=== PATIENT | female | born 1960 | race Caucasian/White ===

== ENCOUNTER → 2024-05-10 16:35 | Outpatient (CLI) | payer MEDICARE, OTHER, SELFPAY ==
--- NOTE | 2024-05-10 | DI.MRI.S_ITS ---
PROCEDURE: MR LUMBAR SPINE WO CON INDICATIONS: radiculopathy lspine TECHNIQUE: Noncontrast sagittal T1 spin echo and T2 fast echo, sagittal STIR, and T2 fast spin echo through the lumbar spine. In cases with scoliosis, additional coronal T2 fast spin echo may be performed. COMPARISON: None. FINDINGS: Alignment and Curvature: Moderate convex left lumbar scoliosis Bone Marrow: Marrow is of normal overall signal. No acute vertebral body compression fractures. Spinal Cord: Conus medullaris terminates at the L1 level. Visualized cord demonstrates normal signal and size. Paraspinous Soft Tissues: No paravertebral masses. T12-L1: No central or foraminal stenosis L1-L2: Disc bulge. Mild central stenosis. No foraminal stenosis L2-L3: Disc bulge and hypertrophic facet joints combines with dorsal epidural fat result in moderate central stenosis. Mild bilateral foraminal stenosis. L3-L4: Disc bulge and arthropathy. Mild central stenosis. Mild bilateral foraminal stenosis L4-L5: Disc bulge and arthropathy. No central stenosis. Moderate left and no right foraminal stenosis L5-S1: Disc bulge and arthropathy. No central stenosis. No foraminal stenosis. IMPRESSION: Multilevel degenerative disc disease and arthropathy results in varying degrees of central and foraminal stenosis including moderate central stenosis at L2-3 Thoracolumbar levoscoliosis Approved by: Nash Mercado M.D. on 05/11/2024 at 14:02
== END ==
PROVIDERS: Referring Provider Family Medicine; Visit Provider Family Medicine
DX: M51.16 Intervertebral disc disorders with radiculopathy, lumbar region (principal); M47.26 Other spondylosis with radiculopathy, lumbar region; M48.061 Spinal stenosis, lumbar region without neurogenic claudication; M51.17 Intervertebral disc disorders with radiculopathy, lumbosacral region; M47.27 Other spondylosis with radiculopathy, lumbosacral region; M54.50 Low back pain, unspecified; M41.9 Scoliosis, unspecified
CPT/HCPCS: 72148

== ENCOUNTER 2024-10-17 08:29 | Day surgery (SDC) | payer MEDICARE, OTHER, SELFPAY ==
[2024-10-05 12:57] VITALS: BMI 34.5
[2024-10-17] VITALS (13 sets, daily range): BP systolic 95–128; BP diastolic 43–86; PULSE 69–83; RESP 12–19; TEMP 36.1–36.6; O2SAT 93–100; BMI 34.7
--- NOTE | 2024-10-17 06:00 | DI.RAD.S_ITS ---
PROCEDURE: XR HIP W PEL IF DONE LT 2V INDICATIONS: anterior total left hip TECHNIQUE: AP pelvis and lateral view of the hip acquired. COMPARISON: [facility], BRIJESH, XR PELVIS 1-2V, 10/17/2024, 11:55. FINDINGS: Bones: Patient is status post right hip arthroplasty, with hardware components in expected positions. The hip joint appears congruent. The visualized bony structures appear intact. Soft tissues: Overlying postoperative changes are noted. No suspicious soft tissue densities. IMPRESSION: Expected post-operative appearance of a hip arthroplasty. Dictated by: Nela Rodríguez M.D. on 10/17/2024 at 13:40 Approved by: Nela Rodríguez M.D. on 10/17/2024 at 13:40
[2024-10-17] MEDS: LACTATED RINGERS 1,000 ML 42 ML IV (09:02)
[2024-10-17] MEDS: ACETAMINOPHEN 325 MG TABLET 975 MG PO (09:02)
[2024-10-17] MEDS: CELECOXIB 200 MG CAPSULE PO (09:02)
[2024-10-17] MEDS: VANCOMYCIN 1,000 MG in SODIUM CHLORIDE 0.9% 250 ML 250 MG IV (09:52)
--- NOTE | 2024-10-17 10:02 | PM.PREOP ---
Pre-operative Note Interval Note History & Physical reviewed/Exam performed by Physician: Yes Changes to H&P: No
--- NOTE | 2024-10-17 10:02 | PM.OP.1 ---
Operative Date/Time/Diagnoses Date of procedure: 10/17/24 Time of procedure: 11:00 Pre-op diagnosis: left hip OA Post-op diagnosis: same Procedure & Clinicians Procedure: Left total hip arthroplasty posterior approach Same procedure as scheduled: Yes Indications: The patient has had progressively worsening left hip pain with radiographic changes consistent with arthritis. Non-operative management has failed and the patient has requested total hip replacement. The risks, benefits and alternatives to surgery were discussed with the patient prior to proceeding. Risks discussed included, but were not limited to, failure to relieve pain, leg length discrepancy, dislocation, stiffness, infection, nerve damage, deep venous thrombosis, pulmonary embolism, stroke, coma, heart attack, permanent paralysis and , as well as the potential need for eventual revision of the prosthetic. Surgeon: Anabell Fisher Manufacturing Baker: Judy Fraser Anesthesia Type: General and Spinal Operative Notes Findings: Severe left hip OA, adequate stability, adequate bone Closure Type: primary Specimen(s): none sent Prosthetic devices, grafts, tissues, transplants, or devices: Fisher and nephew size 48 R3 cup, neutral poly liner,one 6.5 mm screw, size 0 polar stem standard offset with collar, 32 x +0 femoral head Estimated Blood Loss (mL): 250 Blood products transfused: none Procedure in detail: The patient was seen in the pre-operative area, where the patient identified the left hip as the operative site and this was marked with my initials. The patient received pre-operative antibiotics and was taken to the operating room and placed on the operative table in the right lateral decubitus position after satisfactory anesthesia. A night time nanny out was performed. The left leg was prepared from the ankle to the iliac crest with ChloroPrep in the usual fashion and draped through sterile drapes. A PA was used during the procedure and was essential for intraoperative retraction and safe implantation of the components. The hip was approached through an approximately 20 cm incision centered over the greater trochanter and curving gently posteriorly as it went proximally. This was carried sharply to the fascia nasima, which was divided and retracted with a self retaining retractor. The trochanteric bursa was excised with care being taken to avoid the sciatic nerve, which was identified and protected throughout the case. The short external rotators were incised and the capsulomuscular flap was raised and tagged for later repair. The hip was dislocated, and a femoral neck osteotomy performed approximately 15 mm above the lesser trochanter. Retractors were placed around the femur. The canal was opened with a box cutting osteotome, followed by a T handled reamer and a lateralizing reamer. The chili pepper broach was then used, followed by sequential broaching until there was good stability of the broach in the femur. Retractors were placed to expose the acetabulum. The labrum and central soft tissues were removed. Reaming was performed initially going up in 2 mm increments, then 1 mm increments until good bite was obtained with an odd sized reamer. The cup 1 mm larger than the last reamer was then inserted using the appropriate anteversion guides. It was further stabilized with a single screw. A trial neutral liner was placed. The broach was placed in the canal. A trial head and neck were then placed and the hip relocated and checked for leg length and stability. An intraoperative film confirmed the component position and no evidence of fracture. The patient was stable in the position of sleep, of squatting, and could be put through a range of motion with 45 degrees internal rotation without dislocation. At 90 degrees flexion, internal rotation to 80? was possible before dislocation. This was felt to be satisfactory and the appropriate components were opened, and the trials were removed. The acetabular liner was impacted into position. The final stem was then impacted into the prepared femoral canal. A brief Betadine soak was performed while trialing with head options. The hip was meticulously irrigated with normal saline. Finally the femoral head was impacted onto the stem. The acetabulum was cleared of all material and the hip relocated one final time. The capsulomuscular flap was then repaired to the greater trochanter though an awl hole using the tag sutures. The short external rotators were repaired with a nonabsorbable suture. The fascia nasima was closed with Vicryl. The subcutaneous layer was closed with barbed sutures and surgical glue. An Aquacel Ag dressing was applied and the patient was taken to recovery having tolerated the procedure well. Complications: none Post-operative Condition: stable Disposition: Acute Care Plan for aftercare: The patient will be maintained on a standard total hip replacement protocol with weight bearing as tolerated and posterior hip precautions. The patient will receive Aspirin and sequential compression devices for DVT prophylaxis. The patient will be discharged home when safe for the home environment.
[2024-10-17] MEDS: CEFAZOLIN 2 GM/100 ML PREMIX 100 ML IV ×2 (11:15→18:47)
[2024-10-17] MEDS: TRANEXAMIC ACID 1,000 MG VIAL 2000 MG INJ ×2 (11:19→12:26)
--- NOTE | 2024-10-17 12:23 | DI.RAD.S_ITS ---
PROCEDURE: XR PELVIS 1-2V INDICATIONS: LEFT HIP ARTHROPLASTY TECHNIQUE: Intra-operative view of the pelvis and hip acquired. COMPARISON: [facility], CR, XR HIP W PEL IF DONE LT 2V, 10/17/2024, 13:06. FINDINGS: Bones: Intraoperative devices prior to placement of arthroplasty prostheses are in expected positions. No fractures or suspicious bony lesions. Soft tissues: Overlying surgical retractors are present, along with other intraoperative changes. IMPRESSION: Intraoperative right hip arthroplasty. Dictated by: Nela Rodríguez M.D. on 10/17/2024 at 13:29 Approved by: Nela Rodríguez M.D. on 10/17/2024 at 13:30
[2024-10-17] MEDS: BUPIVACAINE 0.25% (PF) 60 ML, EPINEPHrine 0.3 MG INJ (12:27)
[2024-10-17] MEDS: BUPIVACAINE LIPOSOME 266 MG/20 ML VIAL INJ (12:28)
[2024-10-17] MEDS: SODIUM CHLORIDE 0.9% 1,000 ML 100 ML IV (13:30)
[2024-10-17] MEDS: IBUPROFEN 400 MG TABLET PO (14:56)
[2024-10-17] MEDS: ACETAMINOPHEN 325 MG TABLET 650 MG PO (14:59)
[2024-10-17] MEDS: ASPIRIN EC 81 MG TABLET PO (21:18)
[2024-10-17] MEDS: DOCUSATE 100 MG CAPSULE PO (21:18)
[2024-10-18] MEDS: OXYCODONE IR 5 MG TABLET PO ×3 (03:15→12:14)
[2024-10-18] MEDS: CEFAZOLIN 2 GM/100 ML PREMIX 100 ML IV (03:16)
[2024-10-18 03:44] VITALS: BP 104/59; PULSE 83; RESP 18; TEMP 36.6; O2SAT 97
[2024-10-18 07:02] LABS: Hematocrit 30.6 % (36-46); Hemoglobin 10.4 g/dL (12.0-16.0)
[2024-10-18] MEDS: CHOLECALCIFEROL (VITAMIN D3) 5,000 UNIT TABLET 5000 UNIT PO (08:10)
[2024-10-18] MEDS: VENLAFAXINE ER 75 MG CAP PO (08:10)
[2024-10-18] MEDS: DOCUSATE 100 MG CAPSULE PO (08:10)
[2024-10-18] MEDS: ASPIRIN EC 81 MG TABLET PO (08:11)
[2024-10-18 08:12] VITALS: BP 101/45; PULSE 75; RESP 16; TEMP 36.1; O2SAT 100
--- NOTE | 2024-10-18 09:12 | PM.DS.1 ---
History of Present Illness History of Present Illness Date Patient Seen: 10/18/24 Time Patient Seen: 08:20 Chief complaint: OPB Narrative: The patient has had progressively worsening left hip pain with radiographic changes consistent with arthritis. Non-operative management has failed and the patient has requested total hip replacement. The risks, benefits and alternatives to surgery were discussed with the patient prior to proceeding. Risks discussed included, but were not limited to, failure to relieve pain, leg length discrepancy, dislocation, stiffness, infection, nerve damage, deep venous thrombosis, pulmonary embolism, stroke, coma, heart attack, permanent paralysis and , as well as the potential need for eventual revision of the prosthetic. Discharge Providers Provider Discharge Date: 10/18/24 Primary care physician: Glory Cox MD Consults: 10/16/24 09:54 Consult to Anesthesiology Routine Comment: Consulting Provider: Anesthesiologist Reason for consultation: Regional block for post operative pain control 10/17/24 13:57 Consult to Discharge Planning Routine Comment: Consult to Occupational Therapy Evaluate & Treat Comment: Physician Instructions: Evaluate and treat Consult to Physical Therapy Evaluate & Treat Comment: Physician Instructions: post op KINA protocol 10/17/24 14:06 Consult to Dietitian, Adult Routine Comment: Reason For Exam: pt intentionally lost 15 lbs in 3 months Discharge provider: Jones Addison PA-C Summary Hospital Course Discharge Diagnosis: left hip OA Hospital Course: Procedure: Left total hip arthroplasty posterior approach Same procedure as scheduled: Yes Surgeon: Anabell Fisher Respiratory Care Practitioner: Judy Fraser Anesthesia Type: General and Spinal Operative Notes Findings: Severe left hip OA, adequate stability, adequate bone Closure Type: primary Specimen(s): none sent Prosthetic devices, grafts, tissues, transplants, or devices: Fisher and nephew size 48 R3 cup, neutral poly liner,one 6.5 mm screw, size 0 polar stem standard offset with collar, 32 x +0 femoral head Estimated Blood Loss (mL): 250 Blood products transfused: none Status at Discharge Cognitive/behavioral status at discharge: oriented Functional status at discharge: uses cane/walker Overall status at discharge: patient is back to baseline Time Spent with Patient Time spent: Less than 30 minutes Exam Vital Signs (past 8 hours): - 10/18/24 03:44 10/18/24 08:12 Temperature 97.8 F 97 F L Pulse Rate 83 75 Respiratory Rate 18 16 Blood Pressure 104/59 L 101/45 L Pulse Oximetry 97 100 Oxygen Flow Rate 0 0 Oxygen Delivery Method Room Air Oxygen Flow Rate 0 Narrative Exam Narrative: Patient found sitting comfortably in the chair finishing her breakfast. Denies any shortness of breath lightheadedness dizziness. Denies any nausea vomiting fever or chills. Denies any new numbness or tingling down the lower extremities. Pain is controlled with oral medications. Lower Extremities. 5/5 strength in hip flexors, quadriceps, hamstrings, DF, PF, EHL bilaterally. Sensation to light touch intact throughout BLE. Calves soft, compressible, nontender. ?Dressing placed intraoperatively CDI. Resp Effort & Inspection: normal respiratory effort and able to speak in complete sentences Objective Labs 10/18/24 06:20 Labs: Laboratory Results - last 24 hr 10/18/24 06:20 Hgb 10.4 L Hct 30.6 L PFSH Medical History REANNA (obstructive sleep apnea) Depression DDD (degenerative disc disease) Surgical History Hx of section Hx of arthroscopy of left knee Hx of total hysterectomy (2009) History of carpal tunnel release of both wrists (~2012) Hx of elbow surgery (~2018) History of total left knee replacement (10/2023) Social History household members: children Smoking Status: Former smoker alcohol intake: current Discharge Assessment & Plan Assessment and Plan Assessment: Left total hip arthroplasty posterior approach Plan of Treatment: Discharge to home. Posterior hip precautions. Ambulate and weight bear as tolerated with assistive devices.? Aspirin 81 mg twice a day for 6 weeks for DVT prevention.? Baseline pain relief with acetaminophen 500 mg q.4 hours as needed and ibuprofen 400 mg q.4 hours PRN.? Patient has been prescribed oxycodone 5 mg q.4 hours for any breakthrough pain.? Initiate physical therapy in the next 5-10 days.? Keep dressing clean and dry. Keep on until first office visit. Dressing becomes dirty or disrupted contact clinic. Follow up in clinic in 2 weeks for wound check. Discharge Plan Discharge Plan Patient Disposition: Home Provider Discharge Comment: DC pending PT approval Discharge orders & Medications Discharge Orders: Discharge (Order); Ordered 10/18/24 Ordered By: Jones Addison Prescriptions: New aspirin 81 mg Tablet,Delayed Release (Dr/Ec) 81 mg PO BID Qty: 90 0RF Continued phentermine 30 mg capsule 30 mg PO QAM oxycodone-acetaminophen 5-325 mg tablet 1 tab PO 3XD PRN (Reason: pain) venlafaxine 75 mg tablet extended release 24hr 75 mg PO DAILY cholecalciferol (vitamin D3) [Vitamin D3] 125 mcg (5,000 unit) Tablet 5,000 unit PO DAILY Follow up/Referrals: Leilani Rodríguez PA-C [[employer]] - 10/27/24 3:30 pm (Appt:10/27 @ 3:30 with Mariah PAC @ [facility] [place] Glory Cox MD [Primary Care Provider] - Diet/Activity/Treatments Diet: Diet as Tolerated Activity: Ambulate multiple times a day. Use a cane or walker as needed. Full weight on leg Cold/Heat Therapy: Use ice multiple times a day. Skin/Wound/Dressing Care Skin care: Leave dressing on. Okay to shower Report to your healthcare provider any signs of infection, such as:: chills, fever, night sweats, unusual drainage and unusual redness Dressing: May shower. Leave dressing in place until follow up in office. No bathing or otherwise soaking incision. Call the office if the dressing becomes saturated inside. Visit Report/Discharge Packet Instructions: DI for Hip Replacement, DI for Prescription Opioid Use Stand Alone Forms: Patient Portal/API, Surgery Discharge Discharge Data Primary Care Provider: Glory Cox Attending Provider: Anabell Fisher VTE Deep Vein Thrombosis/Pulmonary Embolism Present on Admission: No
--- NOTE | 2024-10-18 09:30 | OT.IP.EVAL ---
Addendum entered and electronically signed by Vivien Enriquez OT 10/18/24 09:44: esign Original Note: Current Diagnoses Unilateral primary osteoarthritis, left hip (10/17/24) Surgery Performed Operation Date: 10/17/24 10:45 Actual Procedures p Total Hip Arthroplasty(Left) - Anabell Fisher MD Past Medical History (Last Reviewed 10/17/24 @ 08:56 by Tova Coates, RN) DDD (degenerative disc disease) Depression REANNA (obstructive sleep apnea) Surgical History (Last Reviewed 10/17/24 @ 08:56 by Tova Coates RN) History of carpal tunnel release of both wrists (~2012) History of total left knee replacement (10/2023) Hx of arthroscopy of left knee Hx of section Hx of elbow surgery (~2018) Hx of total hysterectomy (2009) Occupational Therapy Inpatient Evaluation/Re-Eval M1 PT/OT-IP Prior Functional Status Start: 10/18/24 09:31 Freq: NEEDED Status: Active Protocol: Document 10/18/24 09:31 [facility] (Rec: 10/18/24 09:42 [facility] [id number]) Medical Review Prior Functional Status Communication I Mobility and Gait Pt limited in mobility due to pain and did not use a device. Activities of Daily Living and IADL's Pt able to do with increased time. Prior Functional Level (Other details) Pt is from [place] and to be staying with her daughter here . House set-up based on her daughter's house. Social History Household Members children Living Arrangements House Number of Floors (Floors) Two Floors Number of Stairs To Enter/Railing? 3-4 steps with feliciano to enter to the garage. Pt has 8 steps with left rail to get to the living, kitchen, and bathroom area in which she will just sleep in a recliner. Home Environment Standard Height Toilet,Tub/ Shower Home Equipment Front Wheel Walker,Shower Seat without Backrest M2 OT-IP Current Condition Start: 10/18/24 09:31 Freq: Status: Active Protocol: Document 10/18/24 09:31 [facility] (Rec: 10/18/24 09:42 [facility] [id number]) Occupational Therapy Current Condition Current Condition Evaluation Date 10/18/24 Treatment Diagnosis S/P L KINA Posterior approach Diagnosis Onset Date 10/17/24 Post Operative Precautions Posterior Hip Precautions No Hip Flexion > 90 degrees,No Hip Internal Rotation,No Hip Adduction M3 OT- IP Subjective and Pain Start: 10/18/24 09:31 Freq: Status: Active Protocol: Document 10/18/24 09:31 [facility] (Rec: 10/18/24 09:42 [facility] [id number]) OT- Subjective Occupational Therapy Visit Type Type Initial Evaluation Visit Start Time 08:50 Visit Stop Time 09:30 Occupational Therapy Visit Comments Patient Comments Pt agreed to get up to use the bathroom and do oral care needs. Patient/Caregiver Goals TO go home. OT Pain Assessment Pain When Pain Assessed During Mobility Pain Present Pain Present Pain Reported Location Right Hip Intensity 5 Scale Used Numeric (0 - 10) M4 OT- IP ADL's Start: 10/18/24 09:31 Freq: Status: Active Protocol: Document 10/18/24 09:31 [facility] (Rec: 10/18/24 09:42 [facility] [id number]) OT BRB-Cqyp-Itmuath General Evaluation Self-Feeding Ability Independent OT ADL-Grooming General Evaluation Grooming Ability Standby Assistance Areas Needing Assistance Retrieving/Set-up of Grooming Items Comments OT Grooming Comments while standing OT ADL-Oral Care General Eval Oral Care Ability Independent Comments Oral Care Comments while standing OT ADL-Dressing General Eval Lower Body Dressing Ability Standby Assistance,Minimal Assistance Areas Needing Assistance Socks Comments OT Dressing Comments ABle to have pt practice use of sock aid and director of maintenance. Educated to dress the LLE first and take out last. OT ADL-Toileting General Evaluation Toileting Ability Standby Assistance Comments OT Toileting Comments Educated to stand and wipe, use of brief/pads at night if needed and to call for assist from her daughter. OT ADL-Bathing Comments OT Bathing Comments Pt states to just sponge bath for now , but would benefit from a transfer bench, HHSP, and grab bars. M5 OT- IP IADL's Start: 10/18/24 09:31 Freq: Status: Active Protocol: Document 10/18/24 09:31 [facility] (Rec: 10/18/24 09:42 [facility] [id number]) OT-Instrumental Activities of Daily Living Deficits IADL Deficits Identified Deficits Home Safety Awareness Awareness of Need for Assistance at Home Good Awareness Ability to Problem Solve Emergency Able to Problem Solve Situations Medication Management Medication Management No Deficits Identified Money Management Money Management No Deficits Identified Meal Preparation Meal Preparation Caregiver Provides Assist Occupational Therapy Co Director Occupational Therapy Co Director Caregiver Provides Assist M6 OT- IP Functional Cognition Start: 10/18/24 09:31 Freq: Status: Active Protocol: Document 10/18/24 09:31 [facility] (Rec: 10/18/24 09:42 [facility] [id number]) Cognitive Factors Limiting Selfcare Function Cognitive Ability Level of Alertness Alert Patient Orientation Name,Age,Birthday,Month,Date, Year,Day of Week,Place, Situation Attention Span Ability Capable of Focused Attention, Capable of Sustained Attention Ability to Follow Commands Able to Follow One Step Commands Safety Awareness No Deficits Noted Cognitive Comments Cognitive Assessment Comments Pt able to recall and needing occasional reminders to incorporate her hip precautions during toilet transfer needs. OT- Vision and Hearing OT- Hearing Assessment OT- Hearing Assessment WFL OT- Vision Assessment Visual Acuity Glasses For Reading Visual Attentiveness WFL Occular Pursuits WFL M7 OT- IP Mobility and Balance Start: 10/18/24 09:31 Freq: Status: Active Protocol: Document 10/18/24 09:31 [facility] (Rec: 10/18/24 09:42 [facility] [id number]) OT-Transfer Assessment Sit to and From Stand Sit to and from Stand Contact Guard Assistance Transfers Transfer Ability Standby Assistance Technique Transfer Destination Chair Transfer Technique Stand Step Pivot Devices Transfer Assistive Devices Gait Belt,Front Wheeled Walker Comments Mobility Comments CGA to stand with initial vc to slide her LLE forwards prior to standing and sitting down. Once on her feet pt is SBA with FWW. OT- Balance Assessment Sitting Balance and Reactions Static Sitting Balance Ability Good Dynamic Sitting Balance Ability Good Standing Balance and Reactions Static Standing Balance Ability Good Dynamic Standing Balance Ability Fair M8 OT- IP Objective Assessments Start: 10/18/24 09:31 Freq: Status: Active Protocol: Document 10/18/24 09:31 [facility] (Rec: 10/18/24 09:42 [facility] [id number]) OT Gross Range of Motion Upper Extremity Range of Motion ROM Impairments WFL for needs. OT Strength Upper Extremity Strength Assessment Within Functional Limits M9 OT- IP Assessment and Plan Start: 10/18/24 09:31 Freq: Status: Active Protocol: Document 10/18/24 09:31 [facility] (Rec: 10/18/24 09:42 [facility] [id number]) OT Summary Assessment and Plan Potential Rehabilitation Potential Excellent Analytic Complexity at Evaluation Low Summary OT Impairments Pain,Balance,Functional Mobility,Dressing,Bathing, Shower Transfers Progress Towards Goals Progressing Toward Goals Assessment Summary Pt low complexity and main barriers are pain, steps, and will bee needign assist for ADL and IADL needs. Pt will also benefit from getting BSC, transfer bench, LB dressing equipment, HHSP, and grab bars . Pt go to her daughter's house to assist and attend outpt PT. Goals Grooming Goal Independent Dressing Goal Independent,Rn Lpn Cna,Sock Aid Toileting Goal Independent Bathing Goal Minimal Assistance Toilet Transfer Goal Independent Shower Transfer Goal Contact Guard Assistance Days to Meet Goals 5 Frequency of Treatment Other frequency 5x/week Treatment Plan OT Treatment Plan ADL Training,Functional Mobility,Patient/Family Education,Discharge Planning Discharge Recommendations OT Discharge Recommendations Home with Assistance, Outpatient PT Home Equipment Needs BSC, transfer bench, grab bars , HHSP, LB dressing equipment Transportation Needs at Discharge Private Vehicle
--- NOTE | 2024-10-18 09:38 | DIET.CONS ---
Dietary Consultation Note Admission Date: Assessment: 64 y F admitted for left total hip arthroplasty. RD consulted for pt intentionally lost 15 lb in 3 months. Pt discharging, EMR reviewed. Per chart weights, intentional loss of 15 lb in 3 months is 7% loss of weight in 3 months and is non-severe. 100% recorded PO intakes, DFM reviewed. No nutritional interventions needed. Ht: 160.02 cm Wt: 88.904 kg BMI: 34.7 UBW: 88.451 kg on 10/05/24 Last BM: () MNA: 10 Nick Score: 23 Diet: 10/17/24 Lunch General (Regular) Diet Diet Modifications: Nutrition Percent Meal Consumed 100% 10/18/24 09:13 Percent Meal Consumed 100% 10/17/24 18:15 Labs: Hgb 10.4 g/dL (12.0-16.0) L 10/18/24 06:20 Hct 30.6 % (36-46) L 10/18/24 06:20 Electronically Signed by: Eileen Roa 10/18/24 09:38 Clinical Dietitian [address] [id number]
--- NOTE | 2024-10-18 10:00 | PT.IIE ---
Current Diagnoses Unilateral primary osteoarthritis, left hip (10/17/24) Surgery Performed Operation Date: 10/17/24 10:45 Actual Procedures p Total Hip Arthroplasty(Left) - Anabell Fisher MD Surgical History (Last Reviewed 10/17/24 @ 08:56 by Tova Coates, RN) History of carpal tunnel release of both wrists (~2012) History of total left knee replacement (10/2023) Hx of arthroscopy of left knee Hx of section Hx of elbow surgery (~2018) Hx of total hysterectomy (2009) Medical History (Last Reviewed 10/17/24 @ 08:56 by Tova Coates, VICKI) DDD (degenerative disc disease) Depression REANNA (obstructive sleep apnea) Physical Therapy Inpatient Evaluation/Re-Eval M1 PT/OT-IP Prior Functional Status Start: 10/18/24 12:05 Freq: NEEDED Status: Active Protocol: Document 10/18/24 10:00 AB (Rec: 10/18/24 12:28 AB [id number]) Medical Review Prior Functional Status Medical History Reviewed Yes Communication able to make needs known Mobility and Gait pt stated that she was independent with all mobilities and ambulation without AD but occasionally uses a 4WW Activities of Daily Living and IADL's Pt able to do with increased time (per OT note) Social History Household Members none Living Arrangements House Number of Floors (Floors) Two Floors Number of Stairs To Enter/Railing? 4 steps without rails to enter the house 8 steps L rail to living room area (pt plans to stay ) Home Environment Standard Height Toilet,Tub/ Shower,Tub/Shower Doors Home Equipment Front Wheel Walker,Straight Cane,Crutches,Raised Toilet Seat w/Armrests,Shower Seat without Backrest Additional Social History Comment pt lives in [place] but plans to go to her daughter's house upon d/c. Daughter works from home and will be able to assist pt if needed. Info provided above is regarding pt's daughter's home set up pt plans to sleep on her recliner for a few days M2 PT-IP Current Condition Start: 10/18/24 12:05 Freq: NEEDED Status: Active Protocol: Document 10/18/24 10:00 AB (Rec: 10/18/24 12:28 AB [id number]) Physical Therapy Current Condition Current Condition Evaluation Date 10/18/24 Treatment Diagnosis s/p L KINA posterior; difficulty in walking Onset Date 10/17/24 M3 PT-IP Subjective Start: 10/18/24 12:05 Freq: NEEDED Status: Active Protocol: Document 10/18/24 10:00 AB (Rec: 10/18/24 12:28 [id number]) Subjective Physical Therapy Visit Type Type Initial Evaluation Visit Start Time 10:00 Visit Stop Time 10:50 Number of RESIDENT SERVICES COORDINATOR Visits 0 Physical Therapy Visit Comments Patient Comments agreeable to do PT Therapy Pain Assessment Pain When Pain Assessed At Rest Pain Present Pain Present Pain Reported Location Right Hip Intensity 6 Scale Used increases with mobility Pain Management Techniques Apply Cold,Elevation, Modification of Treatment,Re- positioning,Timing of Activity with Medications M4 PT-IP Mobility and Gait Start: 10/18/24 12:05 Freq: NEEDED Status: Active Protocol: Document 10/18/24 10:00 AB (Rec: 10/18/24 12:28 [id number]) PT-Bed Mobility Assessment Supine to Sit Supine to Sit Moderate Assistance Sit to Supine Sit to Supine Moderate Assistance,1 Person Assistance PT-Transfer Assessment Sit to and From Stand Sit to and from Stand Contact Guard Assistance,1 Person Assistance,Use of Upper Extremities Equipment Transfer Assistive Device Gait Belt,Front Wheeled Walker Orthotic/Prosthetic Devices or Brace: No Transfers Transfer Destination Bed Transfer Technique ambulated Transfer Ability Level of Assist Contact Guard Assistance,1 Person Assistance,Use of Upper Extremities Comments Mobility Comments pt sitting on the chair and agreeable to do PT. obtained PLOF and home setup. reviewed posterior hip precautions with pt. pt able to recall afterwards. pt completed sit to stand from the chair CGA and cued for techniques and precautions. pt ambulated in room ~ 30 ft and sat on EOB. pt completed sit to supine mod A for LLE elevation to bed. pt completed supine to sit mod A and cues. educated pt on how to do bed mobility using SPC as leg stallion manager and pt stated that daughter will also be able to assist. pt also plans to sleep on her recliner for first few days. pt completed sit to stand from EOB CGA and step transfer to chair SBA. pt rested. agreed to do stairs. sit to stand from chair CGA and ambulated towards the stairs ~ 40 ft using FWW SBA to CGA. c/o increase hip pain. stair climbing training conducted. pt stated that she prefers using her crutches. educated pt on how to do stairs using 2 crutches and also 1 crutch + L rail. pt completed up/down steps using B crutches CGA. pt declined doing more stairs and stated that she got it. pt also stated that she will be able to tell her daughter what to do and how to assist her. assisted pt back to her room. pt requested to go back to bed . completed sit to stand from w/c SBA and ambulated to EOB using fWW SBA to CGA. completed sit to supine mod A for LE elevation to bed. positioned pt on the bed. call light and table placed within reach. Gait Assessment Gait Gait Assistance Required: Standby Assistance,Contact Guard Assist Distance (Feet) 40 Able to Maintain Weight Bearing Status Yes During Gait Assistive Devices Assistive Device Gait Belt,Front Wheeled Walker Orthotic/Prosthetic Devices or Brace: No Gait Deviations General Gait Pattern Decreased Stride Length, Decreased Feet Clearance Factors Limiting Gait Function Factors Limiting Gait Function Decreased Activity Tolerance, Decreased Strength,Limited Range of Motion,Pain,Poor Balance,Poor Safety Awareness Stair Climbing Assessment Evaluation Level of Assist On Stairs Contact Guard Assistance Devices Stair Climbing Assistive Devices Axillary Crutches Technique/Endurance Stair Climbing Direction Ascend and Descend Stair Climbing Technique Step to Step Number of Steps Climbed 3 Query Text: Stair Climbing Set # Repetitions (reps) 1 PT-Balance Assessment Sitting Balance and Reactions Static Sitting Balance Ability Normal Dynamic Sitting Balance Ability Normal Standing Balance and Reactions Static Standing Balance Ability Good Dynamic Standing Balance Ability Fair Device Used FWW M5 PT-IP Objective Assessments Start: 10/18/24 12:05 Freq: NEEDED Status: Active Protocol: Document 10/18/24 10:00 AB (Rec: 10/18/24 12:28 AB [id number]) Orientation Orientation/Cognition Level of Alertness Alert Orientation Name,Place,Situation Language Function Ability No Deficits Noted Safety Awareness Understands Safety Issues Memory Description No Deficits Noted Gross Range of Motion Lower Extremity ROM Assessment Within Functional Limits Strength Lower Extremity Strength Assessment Left Impaired Hip 3-/5 Knee 4-/5 Coordination Assessment Gross Coordination Gross Coordination WNL Muscle Tone Muscle Tone WNL Yes M6 PT-IP Treatment Start: 10/18/24 12:05 Freq: NEEDED Status: Active Protocol: Document 10/18/24 10:00 AB (Rec: 10/18/24 12:28 AB [id number]) Physical Therapy Treatment Education Education Provided Precautions,Weight Bearing Status,Safety M7 PT-IP Assessment and Plan Start: 10/18/24 12:05 Freq: NEEDED Status: Active Protocol: Document 10/18/24 10:00 AB (Rec: 10/18/24 12:28 AB [id number]) PT Summary Assessment and Plan Potential Rehabilitation Potential Good Status of Condition at Evaluation Stable Summary Impairments Pain,ROM,Strength,Balance, Coordination,Bed Mobility, Transfers,Gait,Activity Tolerance Assessment Summary pt is a 64 y/o F s/p L KINA posterior approach POD 1. pt has L hip posterior precautions and is WBAT. pt requiring mod A for bed mobility and SBA to CGA for transfers and ambulation using fWW. pt will have her daughter assists her at home. pt has outpt PT setup. Goals Bed Mobility Goal Independent Transfer Goal Independent,Front Wheeled Walker Gait Goal Independent,Front Wheel Walker Gait Distance 200 Other Goals up/down 4 steps B crutches mod I up/down 8 steps L rail + 1 crutch mod I Days to Meet Goals 5 Frequency of Treatment Frequency Of Treatment Twice a Day Treatment Plan Physical Therapy Treatment Plan Bed Mobility Training,Transfer Training,Gait Training, Therapeutic Exercise,Balance Retraining,Post Op Education, Discharge Planning,Hot or Cold Pack,Neuromuscular Re-ed, Coordination Retraining,Manual Therapy Precautions Posterior Hip Precautions No Hip Flexion > 90 degrees,No Hip Internal Rotation,No Hip Adduction Weight Bearing Status Weight Bearing Status Weight Bear as Tolerated Allowed Weight Bearing Amount (enter % LLE WBAT or #) (%) Recommendations To Nursing Amount of Assist Needed 1 Person Assist Discharge Recommendations PT Discharge Recommendations Home with Assistance, Outpatient PT Transportation Needs at Discharge Private Vehicle
--- NOTE | 2024-10-18 11:45 | CM.DANOTE ---
Initial DCP Assessment Visit Note Reviewed EMR and team rounds for status updates. Met with pt briefly at bedside to introduce self and role, pt was just finishing up with PT at the time of this visit. Pt lives independently at baseline with no AD in her own home in [place], she is here visiting her dtr in [place]. Her dtr will pick her up this afternoon, as she has been medically cleared for home d/c. Payor: Medicare Attending: Dr. Anabell Fisher Pt is a 64 year-old F with a hx over the last 2 1/2 months of chronic lower back pain that radiates down hoer left leg. Pain is worse with walking or standing. Conservative efforts at pain relief include OP PT and Gabapentin, with no lasting benefit or improvement, however her mobility is now very limited. Pt has a plan for OP PT, has all of the necessary DME at home for her postoperative recovery needs. Pt denied any CM assistance or resource needs at this time. Discharge Planning/Care Management CM Discharge Assessment Start: 10/18/24 11:40 Freq: Status: Active Protocol: Document 10/18/24 11:41 DPL (Rec: 10/18/24 11:45 DPL [id number]) Discharge Planning Assessment Assigned Solar Resource Assessor SHAD Perla Advance Directives? No History Provided By Patient,Medical Record Has Patient been admitted in last 30 No days? Prior Living Arrangements House Household Members children Type of transporation used prior to Drives own vehicle admit Independent with ADL's Yes Is patient alert and oriented? Yes Caregiver for Another No Community Services used prior to Physical Therapy admission: DME Already Rented / Owned Elevated Toilet Seat,FWW / Walker Comment Pt does not use an AD at baseline, however has all of the DME necessary for home recovery needs. Patient/Family Preference OP PT Therapy Barriers to Discharge No Discharge Plan Home Community Services Physical Therapy Transportation Arrangement Son Referrals Initiated None needed Whiteboard Updated in Patient Room with Yes name and ext. # of Solar Resource Assessor Review Status In Process Please Provide Date Initial DC 10/18/24 Assessment Was Performed Pre-Anesthesia Assessment Start: 10/05/24 12:57 Freq: Status: Active Protocol: Document 10/05/24 12:57 LB (Rec: 10/05/24 13:30 LB [id number]) Pre-Anesthesia Assessment PAC Comment 10/05/24 Phone assessment. Preferred Name Maggie Patient Information Reviewed Via Phone Assessment Assessment Completed With Patient Diagnostic Results BMP/CMP,CBC,EKG,Urinalysis Comment Outside reports. 09/15/24 Labs. 08/29/24 EKG. Primary Care Provider In [place] Seen Specialist in Last 12 Months Yes Specialist Seen Orthopedist Primary Language Mosotho Preferred Language Mosotho Port Patrol Officer Required No Height 160.02 cm Weight 88.451 kg Body Mass Index (BMI) 34.5 Hearing Ability Normal Visual Assist None Dentition Type Teeth, Natural Present Barriers to Learning None Other Aids No Hx Anesthesia Reactions No Hx Family Anesthesia Reaction No Hx Malignant Hyperthermia No Hx Blood Transfusions No Anesthesia Review Requested No Poultice Machine Operator No alcohol intake current alcohol intake frequency a few times a month Smoking Status Former smoker Tobacco type cigarettes how long ago did patient quit smoking Quit 40+ years ago. Substance Use Type [#R] does not use Pain Present Pain Reported Comment Left hip. Musculoskeletal Symptoms Back Pain,Difficulty Walking, Joint Pain,Radiating Pain into Limb History of Falling (Recent or History of No ) Patient is completely paralyzed or No completely immobile Mental Status Oriented to own ability Comment Will bring walker. Is patient on oxygen? No Does patient have CAMPOS/SOB Yes: From being out of shape Hx Sleep Apnea Yes CPAP/BIPAP use prescribed not used Comment Pt states she hasn't used in years. Plans to be retested. Currently Taking a Beta Monique No Can You Climb a Flight of Stairs Without Yes SOB Hx Chest Pain No Hx SOB No Hx Syncope or Dizziness Yes: worked up - found nothing Anti-Coagulant Therapy No Has a Audiometrist No Cardiac Testing No Hx Pacemaker/ICD No Cardiac Clearance Received Not Applicable Dysphagia No Gastrointestinal Symptoms Constipation Bladder Pattern Nocturia Urinary Catheter Present No Hx Urinary Self Catheterization No Diabetes No HgbA1C 5.9 Date 09/15/24 Patient No Lactating No Hx Drug Resistant Organism No Presence of External or Internal Medical Yes: Left knee. Devices Have you had any close contact with No someone diagnosed with COVID-19? Are you experiencing any of these No symptoms symptoms? Comment Denies covid last 2 months. Lives With children Current Living Arrangements House Number of Floors (Floors) Two Floors Number of Stairs To Enter/Railing? 2-3 steps to enter, - no railing but there are feliciano to hold on to. Main floor living. Support System Child/Children Does the Patient Have Assistance After Yes Surgery Patient Discharge Plan Description Return Home Feels Safe in Current Environment Yes Do you have a plan to hurt yourself or No Plan others? Emergency Contact Name Madyson Granados - daughter Emergency Contact Advance Directives? No PAC Instructions Assistance for 24 hours post- op,Durable medical equipment, Medications to take/avoid, Nasal antibiotic,No ETOH/ petroleum product on skin DOS, NPO,Post-op transportation,Pre -surgical wash,Sensory aids, Sturdy shoes/comfortable clothes,Do not bring valuables and remove jewelry
[2024-10-18] MEDS: ACETAMINOPHEN 325 MG TABLET 650 MG PO (12:14)
== END 2024-10-18 13:50 | disposition home or self-care (01) ==
LOC: OR 08:30 → AC 08:31
PROVIDERS: PCP Family Medicine; Referring Provider Orthopaedic Surgery; Visit Provider Orthopaedic Surgery
PROC: 0SRB0JZ Replacement of Left Hip Joint with Synthetic Substitute, Open Approach (ICD-10-PCS; CPT 27130; principal; 2024-10-17 10:45)
DX: M16.12 Unilateral primary osteoarthritis, left hip (principal)
CPT/HCPCS: 27130; 72170; 73502; 85014; 85018; 97161; 97165; 97530; 97535; C1776; J0171; J0666; J0690; J1100; J1885; J2405; J2704

== ENCOUNTER 2025-03-14 10:40 | Day surgery (SDC) | payer MEDICARE, OTHER, SELFPAY ==
[2024-10-17 12:56] VITALS: BMI 34.7
[2025-03-14 11:01] VITALS: BP 152/94; PULSE 98; RESP 18; TEMP 36.3; O2SAT 98
[2025-03-14] MEDS: LACTATED RINGERS 1,000 ML 84 ML IV (11:07)
--- NOTE | 2025-03-14 11:07 | PM.HP.IH.1 ---
History of Present Illness History of Present Illness Date Patient Seen: 03/14/25 Chief complaint: SDC Narrative: 10 year follow-up screening colonoscopy COUNTS INCLUDE 234 BEDS AT THE [facility] Medical History REANNA (obstructive sleep apnea) Depression DDD (degenerative disc disease) Surgical History Hx of section Hx of arthroscopy of left knee Hx of total hysterectomy (2009) History of carpal tunnel release of both wrists (~2012) Hx of elbow surgery (~2018) History of total left knee replacement (10/2023) Social History household members: children Smoking Status: Never smoker alcohol intake: current Meds Home Medications and Allergies Home Medications ?Medication ?Instructions ?Recorded ?Confirmed ?Type cholecalciferol (vitamin D3) 125 5,000 unit PO DAILY 10/05/24 10/17/24 History mcg (5,000 unit) tablet (Vitamin D3) oxycodone-acetaminophen 5 mg-325 1 tab PO 3XD PRN pain 10/05/24 10/05/24 History mg tablet phentermine 30 mg capsule 30 mg PO QAM 10/05/24 03/14/25 History venlafaxine 75 mg tablet,extended 75 mg PO DAILY 10/05/24 10/17/24 History release 24 hr sodium,potassium,mag sulfates 17.5 See Rx Instructions PO .COMPLEX 03/01/25 Rx gram-3.13 gram-1.6 gram oral soln #354 mL (Suprep Bowel Prep Kit) Allergies Allergy/AdvReac Type Severity Reaction Status Date / Time No Known Drug Allergies Allergy Verified 03/14/25 10:56 Exam Vital Signs (past 8 hours): - 03/14/25 11:01 Temperature 97.4 F L Pulse Rate 98 H Respiratory Rate 151 H Blood Pressure 152/94 H Pulse Oximetry 98 Oxygen Delivery Method Room Air Oxygen Delivery Method Room Air Narrative Exam Narrative: Oropharynx free of lesion Assessment & Plan Assessment & Plan narrative: Ten year follow-up screening colonoscopy. Risks, benefits, alternatives have been explained. Time-Based Coding :: [TOTAL MINUTES] spent with patient and on the chart (including review of chart, obtaining history, exam, reviewing outside data, placing orders, documenting exam and treatment plan, and counseling patient) on [DATE]. PROFEE Boiler Repairman Document charge(s): No
--- NOTE | 2025-03-14 11:09 | PM.OP.COLON ---
Operative Date/Time/Diagnoses Date of procedure: 03/14/25 Time of procedure: 11:30 Pre-op diagnosis: See indication and findings Post-op diagnosis: same Procedure & Clinicians Study performed: Colonoscopy Same procedure as scheduled: Yes Indications: Ten year screening Surgeon: Azeem Tay Procedure Notes Procedure in detail: After informed consent was obtained the patient was placed in left lateral decubitus position. The video colonoscope was introduced the rectum slowly advanced cecum. On slow withdrawal mucosa was carefully examined. The scope was removed. The patient tolerated procedure well. Blood loss none Complications none Sedation mac Findings 1. Normal colonoscopy to cecum Patient should have follow-up colonoscopy in 10 years
[2025-03-14 11:33] VITALS: BP 116/73; PULSE 10; RESP 98; TEMP 36.8; O2SAT 78
[2025-03-14 11:39] VITALS: BP 115/72; PULSE 76; RESP 13; O2SAT 100
[2025-03-14 11:50] VITALS: BP 126/75; PULSE 80; RESP 17; O2SAT 98
== END 2025-03-14 12:01 | disposition home or self-care (01) ==
PROVIDERS: PCP Family Medicine; Referring Provider Internal Medicine Gastroenterology; Visit Provider Internal Medicine Gastroenterology
PROC: 0DJD8ZZ Inspection of Lower Intestinal Tract, Via Natural or Artificial Opening Endoscopic (ICD-10-PCS; CPT 45378; principal; 2025-03-14 11:45)
DX: Z12.11 Encounter for screening for malignant neoplasm of colon (principal)
CPT/HCPCS: G0121; J2704